=== PATIENT | female | born 1975 | race Caucasian/White ===

== ENCOUNTER 2017-11-03 21:56 | Emergency (ER) | payer BC ==
[~2017-11-03] VITALS: Ht 162.6 cm; Wt 69.0 kg
[~2017-11-03 21:56] MED LIST: ZOFRAN ODT4 MG PO
[2017-11-03] MEDS ORDERED: ALPRAZOLAM ER1 MG (22:13)
[2017-11-03] MEDS ORDERED: PAXIL10 MG (22:14)
[2017-11-03] MEDS ORDERED: SEROQUEL300 MG (22:14)
[2017-11-03] MEDS ORDERED: HYDROCODONE-AP1 EAC6 PO (22:27)
[2017-11-03 22:59] VITALS: BP 121/67
== END 2017-11-03 23:02 | disposition home or self-care (01) ==
LOC: M.ERS 21:56
DX: G89.29 Other chronic pain (principal); M25.562 Pain in left knee; F31.9 Bipolar disorder, unspecified; F20.9 Schizophrenia, unspecified; G47.00 Insomnia, unspecified; Z88.0 Allergy status to penicillin; Z88.6 Allergy status to analgesic agent; Z88.5 Allergy status to narcotic agent; Z88.8 Allergy status to other drugs, medicaments and biological substances; Z90.49 Acquired absence of other specified parts of digestive tract

== ENCOUNTER 2018-01-07 22:03 | Emergency (ER) | payer BC ==
[~2018-01-07] VITALS: Ht 157.5 cm; Wt 72.6 kg
[~2018-01-07 22:03] MED LIST changes: +ALPRAZOLAM ER1 MG; +HYDROCODONE-AP1 EAC6 PO; +PAXIL10 MG; +SEROQUEL300 MG
[2018-01-07 22:33] LABS: URINE BILIRUBIN NEGATIVE (Negative); URINE BLOOD NEGATIVE (Negative); URINE CLARITY CLEAR; URINE COLOR YELLOW; URINE GLUCOSE-RANDOM NEGATIVE (Negative); URINE KETONES NEGATIVE (Negative); URINE LEUKOCYTES-REFLEX NEGATIVE (Negative); URINE NITRITE-REFLEX NEGATIVE (Negative); URINE PROTEIN NEGATIVE (Negative); URINE UROBILINOGEN 0.2 E.U./dl (0.2-1.0)
[2018-01-07 22:36] LABS: CRYSTALS None Seen /LPF (None Seen)
[2018-01-07 22:44] LABS: ABSOLUTE EOSINOPHILS 0.1 thou/uL (0.0-0.7); ABSOLUTE LYMPHOCYTES 2.7 thou/uL (0.8-5.3); ABSOLUTE MONOCYTES 0.6 thou/uL (0.0-1.2); ABSOLUTE NEUTROPHILS 6.4 thou/uL (1.6-8.1); BASOPHILS 0.4 %; EOSINOPHILS 0.9 %; HEMATOCRIT 35.1 % (37.0-47.0); HEMOGLOBIN 11.7 gm/dL (12.0-15.0); LYMPHOCYTES 27.3 %; MCH 30.1 pg (26.0-34.0); MCHC 33.4 g/dL (28.0-37.0); MCV 90.2 fL (80.0-100.0); MONOCYTES 5.9 %; MPV 7.4 fl. (7.2-11.1); NUCLEATED RBCS 0 /100WBC; PLATELET COUNT* 235 thou/uL (150-400); POLYS 65.5 %; RBC 3.89 mil/uL (4.20-5.00); RDW-CV 13.9 % (10.5-14.5); WBC 9.8 thou/uL (4.0-11.0)
[2018-01-07 23:00] LABS: CALCIUM 8.8 mg/dL (8.5-10.1); CREATININE 0.7 mg/dL (0.6-1.3); POTASSIUM 3.7 mmol/L (3.5-5.1)
[2018-01-07 23:04] LABS: ALBUMIN 3.8 g/dL (3.4-5.0); TOTAL BILIRUBIN 0.3 mg/dL (<0.1-1.0); TOTAL PROTEIN 7.1 g/dL (6.4-8.2)
[2018-01-08] MEDS ORDERED: HYDROCODONE-AP1 EAC6 PO (00:36)
[2018-01-08 01:04] VITALS: BP 151/94
== END 2018-01-08 01:06 | disposition home or self-care (01) ==
LOC: M.ERS 22:03
PROVIDERS: Emergency Medicine
DX: G89.18 Other acute postprocedural pain (principal); M25.562 Pain in left knee; R19.7 Diarrhea, unspecified; R11.10 Vomiting, unspecified; F41.9 Anxiety disorder, unspecified; F31.9 Bipolar disorder, unspecified; F20.9 Schizophrenia, unspecified; Z90.49 Acquired absence of other specified parts of digestive tract; Z88.0 Allergy status to penicillin; Z88.8 Allergy status to other drugs, medicaments and biological substances